=== PATIENT | female | born 1940 | race Caucasian/White ===

== ENCOUNTER → 2024-08-25 09:10 | Outpatient (REF) | payer BC, SELFPAY | LOC: RAD 09:10 | PROVIDERS: ATTENDING PHYSICIAN Emergency Medicine | DX: R05.1 Acute cough (principal) | CPT/HCPCS: 71046 ==

== ENCOUNTER → 2024-10-19 11:01 | Outpatient (REF) | payer BC, SELFPAY | LOC: HWWDC 11:01 | PROVIDERS: ATTENDING PHYSICIAN Emergency Medicine | DX: Z12.31 Encounter for screening mammogram for malignant neoplasm of breast (principal) | CPT/HCPCS: 77063; 77067 ==

== ENCOUNTER → 2025-01-03 10:36 | Outpatient (REF) | payer BC, SELFPAY | LOC: RAD 10:36 | PROVIDERS: ATTENDING PHYSICIAN Internal Medicine Critical Care Medicine; FAMILY PHYSICIAN Emergency Medicine | DX: R93.89 Abnormal findings on diagnostic imaging of other specified body structures (principal) | CPT/HCPCS: 71046 ==

== ENCOUNTER → 2025-03-08 08:47 | Outpatient (REF) | payer BC, SELFPAY | LOC: RAD 08:47 | PROVIDERS: ATTENDING PHYSICIAN Nurse Practitioner Family; FAMILY PHYSICIAN Emergency Medicine | DX: M25.562 Pain in left knee (principal) | CPT/HCPCS: 73560 ==

== ENCOUNTER → 2025-05-25 09:31 | Outpatient (REF) | payer BC, SELFPAY | LOC: HWRAD 09:31 | PROVIDERS: ATTENDING PHYSICIAN Specialist; FAMILY PHYSICIAN Emergency Medicine; REFERRING PHYSICIAN Internal Medicine Critical Care Medicine | DX: M19.011 Primary osteoarthritis, right shoulder (principal) | CPT/HCPCS: 73200 ==

== ENCOUNTER 2025-05-27 08:39 | Emergency (ER) | payer BC, SELFPAY ==
[2025-05-27 08:43] VITALS: BP 141/74
--- NOTE | 2025-05-27 09:35 | ED.GENMED ---
History of Present Illness
General
Chief Complaint: Musculo-Skeletal Complaint
Source: patient
Exam Limitations: none
Time Seen by Provider: 05/27/25 09:33
Nursing documentation reviewed up to this point in time: agreed with
History of Present Illness
History of Present Illness:
Patient is an 84 year-old female who presents to the ER complaining of right shoulder pain. Patient reports she describes mechanical fall on Wednesday 2 days ago. She landed on her right face and hit her right shoulder. No loss of consciousness no
headache. No blood thinners. No neck pain. Patient fell and complains of right shoulder pain. She has been taking Tylenol without relief. She is followed by Dr. Fraser of orthopedics. Eventually she reports she will need a right shoulder
replacement.
Past History
Past History
ED Past Medical History: None
Social History
Tobacco: Non-smoker
Personal:
Phy Exam
General Physical Exam
General Presentation: no apparent distress
General age: appears stated age
General Skin: warm and dry
General Habitus: normal
General Mental: alert
Neurological Exam
Neurological Exam: alert and oriented x3
Musculoskeletal Exam
Musculoskeletal Exam: other (right shoulder with strong pulses + tenderness to prox humerus )
Course
Orders/Labs/Results
Orders:
Orders
05/27/25 09:08
Shoulder, Right, Trauma [CR Shoulder, Trauma - Right] Urgent
Comment:
Reason For Exam: pain injury
05/27/25 09:43
Hydrocodone 5/APAP 325 [[place] 5/325] 1 tablet PO NOW STA
05/27/25 09:44
Sling Right-Treatment ONCE
05/27/25 11:15
Ibuprofen [Motrin] 400 mg PO NOW STA
Vital Signs
Initial and Last Documented VS:
Initial Vital Signs
Temp Pulse Resp BP Pulse Ox
98 F 81 16 141/74 100
05/27/25 08:43 05/27/25 08:43 05/27/25 08:43 05/27/25 08:43 05/27/25 08:43
Last Documented Vital Signs
Temp Pulse Resp BP Pulse Ox
98 F 81 16 141/74 100
05/27/25 08:43 05/27/25 08:43 05/27/25 08:43 05/27/25 08:43 05/27/25 09:37
MDM/Problems Addressed
Differential Diagnosis Includes:
Not limited to contusion fracture dislocation
MDM/Problems Addressed:
Patient is an 10-year-old female complaining of right shoulder pain from a fall on Wednesday. No head injury. She has obvious tenderness and pain with range of motion of the right shoulder she does have a fracture through the neck of the humerus. She
does see orthopedics, Dr. Fraser I will eventually need shoulder replacement. I did discuss this with Dr. Fraser he was able to visualize fracture will arrange outpatient follow-up. Patient DC with a sling and pain medication
*Pulse Oximetry
SaO2: 100
Oxygen Mode of Delivery: Room air
Patient hypoxic: no
*Critical Care Note
Total Time (30-74mins, 75-104mins- exclusive of procedures): Not Applicable
Patient Management
Discussion with other providers: [facility] (ortho DR Fraser )
ED Attending Note
-
Portions of this chart may have been created with voice recognition software.� Occasional wrong word or��sound alike� substitutions may have occurred due to the inherent limitations of voice recognition software.
Discharge Plan
Departure
Patient Disposition: Home (Routine Discharge)
Date of Disposition: 05/27/25
Time of Disposition: 11:16
Patient with high blood pressure during this ER visit?: Yes
Condition: Fair
Covid-19: Not Applicable
Discharge Problem:
Fracture of proximal end of humerus
Instructions: How to Use a Shoulder Sling, Using Cold for Pain, Upper Arm Fracture ED
Prescriptions:
New
hydrocodone-acetaminophen 5-325 mg tablet
1 tab PO Q6H PRN (Reason: Pain) Qty: 10 0RF
No Action
hydrocodone-acetaminophen [Vicodin] 1 EACH tablet
1 ea PO Q4HPRN PRN (Reason: pain) Qty: 15 0RF
Referrals:
Jeanette Severino MD [Family Provider, Internal Medicine]
Dereck Fraser MD [Active, Orthopedics]
Activity Restrictions/Additional Instructions:
As discussed wear sling for support. Ice the affected area for the next 24 to 48 hours 20 minutes at a time several times a day. You may take ibuprofen every 8 hours with food. In addition a prescription for narcotic medicine was sent to your
pharmacy. Take only as directed. This is a narcotic and will cause drowsiness. No driving /drinking alcohol while taking this medication. In addition this may cause constipation please take [id number] laxative while taking this
medication. Call orthopedics tomorrow for an appointment as soon as possible for further evaluation return if any worsening of symptoms
Interventions
Interventions:
*Risk Screen - Suicide Last Done: 05/27/25 08:44
*General Assessment Last Done: 05/27/25 10:07
*Neglect/Abuse Screening Last Done: 05/27/25 08:44
*ED- Fall Risk Assessment Last Done: 05/27/25 10:07
*ED COVID-19 Vaccine History Last Done: 05/27/25 10:07
*Nursing Disposition Last Done: 05/27/25 11:41
ED-Musculoskeletal Assessment Last Done: 05/27/25 10:07
Discharge Date and Time
Discharge Date/Time: 05/27/25 11:42
Print Language: TURKISH
[2025-05-27] MEDS: NORCO 5/325 1 TABLET PO (09:52)
[2025-05-27] MEDS: MOTRIN 400 MG PO (11:38)
== END 2025-05-27 11:42 | disposition home or self-care (01) ==
LOC: EMR 08:39
PROVIDERS: EMERGENCY PHYSICIAN Emergency Medicine; FAMILY PHYSICIAN Emergency Medicine
DX: S42.214A Unspecified nondisplaced fracture of surgical neck of right humerus, initial encounter for closed fracture (principal); W19.XXXA Unspecified fall, initial encounter; R03.0 Elevated blood-pressure reading, without diagnosis of hypertension; M19.90 Unspecified osteoarthritis, unspecified site; Z85.3 Personal history of malignant neoplasm of breast
CPT/HCPCS: 99283; 29240; 73030

== ENCOUNTER → 2025-07-11 13:16 | Outpatient (REF) | payer BC, SELFPAY | LOC: HWRAD 13:16 | PROVIDERS: ATTENDING PHYSICIAN Specialist; FAMILY PHYSICIAN Nurse Practitioner Family | DX: M19.011 Primary osteoarthritis, right shoulder (principal); S52.571D Other intraarticular fracture of lower end of right radius, subsequent encounter for closed fracture with routine healing | CPT/HCPCS: 73200 ==